=== PATIENT | male | born 1985 | race Caucasian/White ===

== ENCOUNTER 2024-09-06 16:46 | Inpatient (IN) | payer OTHER ==
[2024-09-06 17:12] VITALS: BMI 31.5
[2024-09-06] MEDS ORDERED: hydrOXYzine PAMOATE 25 MG CAPSULE (FP) PO PRN (18:48)
[2024-09-06] MEDS ORDERED: NALOXONE (NARCAN) HCL 4 MG/0.1 ML SPRAY NS PRN (18:48)
[2024-09-06] MEDS ORDERED: guaiFENesin 600 MG TABLET.ER (FP) PO PRN (18:48)
[2024-09-06] MEDS ORDERED: MAG HYDROX/AL HYDROX/SIMETH 30 ML UNIT-DOSE CUP PO PRN (18:48)
[2024-09-06] MEDS ORDERED: ONDANSETRON *ODT* 4 MG TABLET SL PRN (18:48)
[2024-09-06] MEDS ORDERED: DICYCLOMINE HCL 10 MG CAPSULE PO PRN (18:48)
[2024-09-06] MEDS ORDERED: LOPERAMIDE HCL 2 MG CAPSULE PO PRN (18:48)
[2024-09-06] MEDS ORDERED: BENZOCAINE/MENTHOL (CHLORASEPTIC ) LOZENGE MM PRN (18:48)
[2024-09-06] MEDS ORDERED: IBUPROFEN 400 MG TABLET (FP) PO PRN (18:48)
[2024-09-06] MEDS ORDERED: MAGNESIUM HYDROX 2400MG/30ML ORAL SUSPENSION 30 ML CUP PO PRN (18:48)
[2024-09-06] MEDS ORDERED: BISMUTH SUBSALICYLATE 524 MG/30 ML PO PRN (18:48)
[2024-09-06] MEDS ORDERED: POLYETHYLENE GLYCOL (HEALTHYLAX) 3350 17 GM PACKET PO PRN (18:48)
[2024-09-06] MEDS ORDERED: BENZONATATE 200 MG CAPSULE PO PRN (18:48)
[2024-09-06] MEDS: MELATONIN 5 MG TABLETS PO SCH (22:17)
[2024-09-06] MEDS: ACETAMINOPHEN 325 MG TABLET (FP) PO PRN (22:17)
[2024-09-06] MEDS: THIAMINE 100 MG TABLET PO SCH (22:17)
[2024-09-07] MEDS: PRENATAL VITAMINS W/ FOLIC ACID TABLET (FP) PO SCH (09:58)
[2024-09-07] MEDS: IBUPROFEN 600 MG TABLET (FP) PO PRN (10:44)
[2024-09-07] MEDS: METHOCARBAMOL 500 MG TABLET PO PRN (10:44)
[2024-09-07] MEDS ORDERED: NICOTINE POLACRILEX 2 MG GUM BUC PRN (15:18)
[2024-09-07 16:58] VITALS: BP 117/71; PULSE 89; RESP 18; TEMP 97.7
== END 2024-09-07 18:38 | disposition left against medical advice (07) | DRG 770 ==
LOC: YASAS 16:46 → Y6N 19:43 → Y3N 20:02
PROVIDERS: ADMIT Allergy & Immunology; ATTEND Allergy & Immunology
PROC: HZ2ZZZZ Detoxification Services for Substance Abuse Treatment (ICD-10-PCS; principal; 2024-09-06)
DX: F10.230 Alcohol dependence with withdrawal, uncomplicated (principal); F14.20 Cocaine dependence, uncomplicated; F12.20 Cannabis dependence, uncomplicated; F17.210 Nicotine dependence, cigarettes, uncomplicated; H04.123 Dry eye syndrome of bilateral lacrimal glands
CPT/HCPCS: 80305; 80307; 93005; 93010

== ENCOUNTER 2024-10-09 12:42 | Inpatient (IN) | payer OTHER ==
[2024-10-09] MEDS ORDERED: hydrOXYzine PAMOATE 25 MG CAPSULE (FP) PO PRN (13:07)
[2024-10-09] MEDS ORDERED: MAG HYDROX/AL HYDROX/SIMETH 30 ML UNIT-DOSE CUP PO PRN (13:07)
[2024-10-09] MEDS ORDERED: guaiFENesin 600 MG TABLET.ER (FP) PO PRN (13:07)
[2024-10-09] MEDS ORDERED: MAGNESIUM HYDROX 2400MG/30ML ORAL SUSPENSION 30 ML CUP PO PRN (13:07)
[2024-10-09] MEDS ORDERED: LOPERAMIDE HCL 2 MG CAPSULE PO PRN (13:07)
[2024-10-09] MEDS ORDERED: NICOTINE POLACRILEX 4 MG GUM BUC PRN (13:07)
[2024-10-09] MEDS ORDERED: IBUPROFEN 400 MG TABLET (FP) PO PRN (13:07)
[2024-10-09] MEDS ORDERED: POLYETHYLENE GLYCOL (HEALTHYLAX) 3350 17 GM PACKET PO PRN (13:07)
[2024-10-09] MEDS ORDERED: BENZOCAINE/MENTHOL (CHLORASEPTIC ) LOZENGE MM PRN (13:07)
[2024-10-09] MEDS ORDERED: ACETAMINOPHEN 325 MG TABLET (FP) PO PRN (13:07)
[2024-10-09] MEDS ORDERED: BISMUTH SUBSALICYLATE 524 MG/30 ML PO PRN (13:07)
[2024-10-09] MEDS ORDERED: ONDANSETRON *ODT* 4 MG TABLET SL PRN (13:07)
[2024-10-09] MEDS ORDERED: NALOXONE (NARCAN) HCL 4 MG/0.1 ML SPRAY NS PRN (13:07)
[2024-10-09] MEDS ORDERED: DICYCLOMINE HCL 10 MG CAPSULE PO PRN (13:07)
[2024-10-09] MEDS ORDERED: ARTIFICIAL TEARS OPHTHALMIC DROPS OU PRN (13:10)
[2024-10-09] MEDS ORDERED: LIDOCAINE VISCOUS 2% ORAL/TOP 15 ML UNIT-DOSE CUP MM PRN (13:11)
[2024-10-09 13:14] VITALS: BMI 29.8
[2024-10-09] MEDS: PRENATAL VITAMINS W/ FOLIC ACID TABLET (FP) PO SCH (14:49)
[2024-10-09] MEDS: THIAMINE 100 MG TABLET PO SCH (22:15)
[2024-10-09] MEDS: MELATONIN 5 MG TABLETS PO SCH (22:15)
[2024-10-09] MEDS: ACAMPROSATE CALCIUM 333 MG TABLET.DR PO SCH (22:15)
[2024-10-10] MEDS: SULFAMETHOXAZOLE/TRIMETHOPRIM 800MG/160MG D.S. TABLET PO SCH (11:02)
[2024-10-10] MEDS: IBUPROFEN 600 MG TABLET (FP) PO PRN (11:03)
[2024-10-11] MEDS: BENZONATATE 200 MG CAPSULE PO PRN (11:07)
[2024-10-12] MEDS: METHOCARBAMOL 500 MG TABLET PO PRN (09:48)
[2024-10-12] MEDS: NYSTATIN 500,000 UNITS/5 ML SUSPENSION PO SCH (11:16)
[2024-10-12 22:19] VITALS: BP 121/81; PULSE 82; RESP 18; TEMP 97.7
[2024-10-13 09:56] LABS: MCHC 31.1 g/dl (32.3-36.5); MEAN CELL VOLUME 91.7 fl (79.0-92.2); MEAN PLT VOLUME 10.1 fl (9.4-12.4); RDW 14.1 % (12.0-15.6)
[2024-10-13 10:15] LABS: GLUCOSE,RANDOM 95.0 mg/dL (74-106); TOT PROT 7.1 g/dl (6.4-8.2)
[2024-10-13 10:16] LABS: CO2 26.0 mmol/L (21-32)
[2024-10-13 10:18] LABS: ALK PHOS 86.0 U/L (40-150)
[2024-10-13 10:21] LABS: CREATININE 0.71 mg/dL (0.55-1.3); SGOT/AST 28.0 U/L (5-34); SGPT/ALT 31.0 U/L (0-55)
[2024-10-13 15:31] LABS: HCV DIAGNOSTIC IN-HOUSE W/RFLX NON-REACTIVE (NONREACTIVE); HIV INTERPRETATION NEGATIVE (NEGATIVE)
== END 2024-10-13 10:51 | disposition home or self-care (01) | DRG 774 ==
LOC: YASAS 12:42 → Y3N 14:21
PROVIDERS: ADMIT Allergy & Immunology; ATTEND Allergy & Immunology
PROC: HZ2ZZZZ Detoxification Services for Substance Abuse Treatment (ICD-10-PCS; principal; 2024-10-09)
DX: F10.230 Alcohol dependence with withdrawal, uncomplicated (principal); F14.20 Cocaine dependence, uncomplicated; F12.20 Cannabis dependence, uncomplicated; F17.210 Nicotine dependence, cigarettes, uncomplicated; B37.0 Candidal stomatitis; H04.123 Dry eye syndrome of bilateral lacrimal glands; K12.0 Recurrent oral aphthae; Z56.0 Unemployment, unspecified; Z59.00 Homelessness unspecified
CPT/HCPCS: 36415; 80053; 85027; 86780; 86803; 87389; 93005; 93010